=== PATIENT | female | born 1940 | race Caucasian/White ===

== ENCOUNTER → 2016-10-28 | Outpatient (CLI) | payer MEDICARE, OTHER | LOC: WI 14:41 | PROVIDERS: ATTEND Obstetrics & Gynecology Gynecology | DX: Z12.31 Encounter for screening mammogram for malignant neoplasm of breast (principal) | CPT/HCPCS: 77067; G0202 ==

== ENCOUNTER 2018-05-06 14:54 | Emergency (ER) | payer MEDICARE, OTHER ==
[2018-05-06 15:04] VITALS: BP 143/60
--- NOTE | 2018-05-06 16:12 | ER Document Report ---
ED Fall - General Chief Complaint: Fall Injury Stated Complaint: FALL/LACERATIONS Time Seen by Provider: 05/06/18 15:17 Mode of Arrival: Ambulatory Information source: Patient Notes: 78-year-old female presents to ED for complaint of bilateral upper arm skin tears. She states she tripped when getting out of the car and caught herself with both arms causing skin tears to both arms. She is on blood thinners and he states they bled profusely and has been placed Band-Aids over all 3 skin tears. Patient is alert and oriented respirations regular and unlabored bleeding is controlled at this time. TRAVEL OUTSIDE OF THE [place] IN LAST 30 DAYS: No - HPI Occurred: This afternoon Where: Outdoors Context: Tripped Associated symptoms: None Location of injury/pain: Upper extremity Quality of pain: Sharp Severity: Mild Pain Level: 1 Prehospital interventions: Other - Bilateral skin tears - Related data Allergies/Adverse Reactions: No Known Allergies Allergy (Verified 05/06/18 14:58) Past Medical History - General Information source: Patient - Social History Smoking Status: Former Smoker Cigarette use (# per day): No Chew tobacco use (# tins/day): No Smoking Education Provided: No Frequency of alcohol use: None Drug Abuse: None Lives with: Family Family History: CAD, Other - Past Medical History Cardiac Medical History: Reports: Hx Congestive Heart Failure, Hx Coronary Artery Disease, Hx Hypercholesterolemia, Hx Hypertension Pulmonary Medical History: Reports: Hx COPD EENT Medical History: Reports: None Neurological Medical History: Reports: None Endocrine Medical History: Reports: Hx Diabetes Mellitus Type 2 Renal/ Medical History: Reports: None Malignancy Medical History: Reports: None GI Medical History: Reports: None Musculoskeletal Medical History: Reports Hx Arthritis, Reports Hx Musculoskeletal Deformity, Reports Hx Musculoskeletal Trauma Skin Medical History: Reports None Psychiatric Medical History: Reports: None Traumatic Medical History: Reports: None Infectious Medical History: Reports: None Past Surgical History: Reports: Hx Abdominal Surgery - AAA, Hx Cardiac Catheterization, Hx Cardiac Surgery, Hx Coronary Artery Bypass Graft - 1997, Hx Coronary Stent - 1998, Hx Open Heart Surgery, Hx Vascular Surgery - AAA stent upper abdomen. Stents into both iliacs or femoral vessels. - Immunizations Hx Diphtheria, Pertussis, Tetanus Vaccination: Yes Review of Systems - Review of Systems Skin: Other - Skin tear bilateral upper arms with large bruises patient on blood thinner Hematologic/Lymphatic: No symptoms reported Neurological/Psychological: No symptoms reported -: Yes All other systems reviewed and negative Physical Exam - Vital signs Vitals: Temp Pulse Resp BP Pulse Ox 97.9 F 88 18 143/60 H 94 05/06/18 15:02 05/06/18 15:02 05/06/18 15:02 05/06/18 15:02 05/06/18 15:02 Interpretation: Normal - General General appearance: Appears well, Alert - HEENT Head: Normocephalic, Atraumatic Eyes: Normal Pupils: PERRL - Respiratory Respiratory status: No respiratory distress Chest status: Nontender Breath sounds: Normal Chest palpation: Normal - Cardiovascular Rhythm: Regular Heart sounds: Normal auscultation Murmur: No - Abdominal Inspection: Normal Distension: No distension Bowel sounds: Normal Tenderness: Nontender Organomegaly: No organomegaly - Back Back: Normal, Nontender - Extremities General upper extremity: Normal ROM, Normal temperature General lower extremity: Normal inspection, Nontender, Normal color, Normal ROM , Normal temperature, Normal weight bearing. No: Quinten's sign Arm: Tender, Ecchymosis, Other - Skin tear to bilateral upper arm Elbow: Tender, Dislocation, Ecchymosis, Laceration - Skin tear to right elbow Forearm: Tender, Ecchymosis - Neurological Neuro grossly intact: Yes Cognition: Normal Orientation: AAOx4 [place] Coma Scale Eye Opening: Spontaneous [place] Coma Scale Verbal: Oriented Ann[place] Coma Scale Motor: Obeys Commands [place] Coma Scale Total: 15 Speech: Normal Motor strength normal: LUE, RUE, LLE, RLE Sensory: Normal - Psychological Associated symptoms: Normal affect, Normal mood - Skin Skin Temperature: Warm Skin Moisture: Dry Skin Color: Normal Course - Vital Signs Vital signs: Temp Pulse Resp BP Pulse Ox 97.9 F 88 18 143/60 H 94 05/06/18 15:02 05/06/18 15:02 05/06/18 15:02 05/06/18 15:02 05/06/18 15:02 Procedures - Laceration/Wound Repair Left Arm Time completed: 16:10 Wound length (cm): 4 Wound's Depth, Shape: Other - skin tear Laceration pre-procedure: Shur-Clens applied Anesthetic type: Other - 0 Volume Anesthetic (mLs): 0 Wound explored: Contaminated Irrigated w/ Saline (mLs): 30 Wound Repaired With: Steri-strips Post-procedure wound care: Sterile dressing applied Post-procedure NV exam normal: No Right Arm Time completed: 16:11 Wound length (cm): 4 - 2 wounds about 4 cm each Wound's Depth, Shape: Superficial Laceration pre-procedure: Sterile PPE donned, Other - saline Anesthetic type: Other - 0 Volume Anesthetic (mLs): 0 Irrigated w/ Saline (mLs): 30 Wound Repaired With: Steri-strips Post-procedure NV exam normal: Yes Complications: No - patient on blood thinners Discharge - Discharge Clinical Impression: Bilateral upper arm skin tear Condition: Stable Disposition: HOME, SELF-CARE Instructions: Family Physicians / Practices Additional Instructions: Skin Tear Your wound is a skin tear. These wounds are difficult and sometimes impossible to suture because the skin is so fragile that it may not hold the sutures. The skin condition can be due to aging and sometimes medications. The best care for such skin tears is sometimes to not try to suture them. Rather, it is best to position the skin as closely as possible to its original location and apply a bandage that can remain in place for several days at a time and sometimes these bandages are left in place until the wound has healed. Most skin tears will heal in about two weeks. Because they are so difficult to care for, skin tears should be expected to leave some scarring. Care of Steri-Strip Closure Your cut has been closed up with a special surgical tape. For this type of cut, it can replace stitches. You must protect the wound just as you would with stitches, however. For the first few days, keep the wound area completely dry. This also means you should avoid activity which makes you sweat. Do not move the area if motion stretches or wrinkles the strips. Don't allow the area to be bumped -- if bleeding occurs, the blood can make the strips loosen. The strips are somewhat waterproof. After a few days, the physician may allow you to shower. Be sure to ask if it's OK. Do not remove the tape until it peels off by itself. At that time, the wound should be healed. Please do not put Band-Aids or tape on her skin. Please use nonstick dressings and Coban as I have demonstrated to you. FOLLOW-UP CARE: If you have been referred to a physician for follow-up care, call the physician s office for an appointment as you were instructed or within the next two days. If you experience worsening or a significant change in your symptoms, notify the physician immediately or return to the Emergency Department at any time for re-evaluation. Forms: Elevated Blood Pressure
== END 2018-05-06 16:20 | disposition home or self-care (01) ==
LOC: ER 14:54
PROC: 0HQCXZZ Repair Left Upper Arm Skin, External Approach (ICD-10-PCS; principal; 2018-05-06)
PROC: 0HQBXZZ Repair Right Upper Arm Skin, External Approach (ICD-10-PCS; 2018-05-06)
DX: S41.112A Laceration without foreign body of left upper arm, initial encounter (principal); S41.111A Laceration without foreign body of right upper arm, initial encounter; W01.0XXA Fall on same level from slipping, tripping and stumbling without subsequent striking against object, initial encounter; Z87.891 Personal history of nicotine dependence; I50.9 Heart failure, unspecified; I25.10 Atherosclerotic heart disease of native coronary artery without angina pectoris; E78.00 Pure hypercholesterolemia, unspecified; I11.0 Hypertensive heart disease with heart failure; J44.9 Chronic obstructive pulmonary disease, unspecified; E11.9 Type 2 diabetes mellitus without complications; Z95.1 Presence of aortocoronary bypass graft
CPT/HCPCS: 99283